=== PATIENT | female | born 1995 | race African-American/Black ===

== ENCOUNTER 2018-05-05 03:15 | Inpatient (IN) | payer OTHER ==
[~2018-05-05 03:15] MED LIST: DEXTROSE 5%-LACTATED RINGERS 1,000 ML IV SCH
[2018-05-05] MEDS: DEXTROSE 5%-NORMAL SALINE 1,000 ML IV ONE ×2 (03:30→19:53)
[2018-05-05 03:49] VITALS: BMI 27.6
[2018-05-05 04:00] LABS: BASO % 0.3 % (0-2.0); EOS % 2.5 % (0-4.5); HEMATOCRIT 37.4 % (32.4-45.2); HEMOGLOBIN 12.8 GM/dL (10.7-15.3); LYMPH % 11.4 % (8-40); MCH 31.2 pg (25.7-33.7); MCHC 34.3 g/dl (32.0-36.0); MEAN CELL VOLUME 90.8 fl (80-96); MEAN PLT VOLUME 9.4 fl (7.5-11.1); MONO % 9.7 % (3.8-10.2); NEUT % 76.1 % (42.8-82.8); PLATELET COUNT 185 K/MM3 (134-434); RBC 4.12 M/mm3 (3.60-5.2); RDW 13.3 % (11.6-15.6); WHITE BLOOD COUNT 14.7 K/mm3 (4.0-10.0)
[2018-05-05 04:13] LABS: INR 0.92 (0.83-1.09); PROTHROMBIN TIME (PATIENT) 10.9 SEC (9.7-13.0)
[2018-05-05 04:28] LABS: ANION GAP 8 MMOL/L (8-16); BLOOD UREA NITROGEN 8 mg/dL (7-18); CALCIUM 8.1 mg/dL (8.5-10.1); CHLORIDE 104 mmol/L (98-107); CO2 25 mmol/L (21-32); CREATININE 0.6 mg/dL (0.55-1.3); GLUCOSE,RANDOM 90 mg/dL (74-106); POTASSIUM 3.7 mmol/L (3.5-5.1); SODIUM 136 mmol/L (136-145)
[2018-05-05] MEDS ORDERED: PROMETHAZINE HCL 25 MG/1 ML VIAL ONE (04:29)
[2018-05-05] MEDS ORDERED: BUTORPHANOL TARTRATE 1 MG/ML VIAL ONE ×2 (04:29)
[2018-05-05] MEDS ORDERED: DEXTROSE 5%-LACTATED RINGERS 1,000 ML IV ONE (04:38)
[2018-05-05] MEDS ORDERED: PROMETHAZINE HCL 25 MG/1 ML VIAL IVPUSH ONE (04:45)
[2018-05-05] MEDS ORDERED: BUTORPHANOL TARTRATE 1 MG/ML VIAL IVPUSH ONE (04:45)
--- NOTE | 2018-05-05 07:57 | HP ---
Past Medical History - Admission Chief Complaint: Labor pain History of Present Illness: 23 yo , @ 40 weks gestation, EDC 05/04/18, admitted for labor pain. History Source: Patient Limitations to Obtaining History: No Limitations - Past Medical History ...: 1 ...Para: 0 ...Term: 0 ...: 0 ...Spon : 0 ...Induced : 0 ...Multiple Gestation: 0 ...LMP: 07/28/17 ... Weeks Gestation by Dates: 40.1 ...EDC by Dates: 05/04/18 ...EDC by Sono: 05/04/18 - Past Surgical History Past Surgical History: Yes: None Hx Myomectomy: No Hx Transabdominal Cerclage: No - Smoking History Smoking history: Never smoked Have you smoked in the past 12 months: No - Alcohol/Substance Use Hx Alcohol Use: No - Social History History of Recent Travel: No Home Medications - Allergies Allergies/Adverse Reactions: Allergies Allergy/AdvReac Type Severity Reaction Status Date / Time No Known Allergies Allergy Verified 05/05/18 03:53 - Home Medications Home Medications: Ambulatory Orders Prenat 115/Iron Fum/Folic/Dss [ 19 Tablet] 1 tab PO DAILY 04/29/18 Family Disease History - Family Disease History Family History: Unremarkable Review of Systems - Review of Systems Constitutional: reports: No Symptoms Eyes: reports: No Symptoms HENT: reports: No Symptoms Neck: reports: No Symptoms Cardiovascular: reports: No Symptoms Respiratory: reports: No Symptoms Gastrointestinal: reports: No Symptoms Genitourinary: reports: Pain Breasts: reports: No Symptoms Reported Musculoskeletal: reports: No Symptoms Integumentary: reports: No Symptoms Neurological: reports: No Symptoms Endocrine: reports: No Symptoms Hematology/Lymphatic: reports: No Symptoms Psychiatric: reports: No Symptoms Pain Intensity: 6 Physical Exam - Maternity Vital Signs: Vital Signs Temperature 97.4 F L 05/05/18 07:00 Pulse Rate 70 05/05/18 07:00 Respiratory Rate 20 05/05/18 07:00 Blood Pressure 126/79 05/05/18 07:00 O2 Sat by Pulse Oximetry (%) Constitutional: Yes: Well Nourished Eyes: Yes: Conjunctiva Clear HENT: Yes: Atraumatic Neck: Yes: Supple Cardiovascular: Yes: Regular Rate and Rhythm Lungs: Clear to auscultation - Abdominal Exam/OB Number of Fetuses: Single Presentation: Vertex Intensity: Mild/Mod - Vaginal Exam/OB Dilatation (cm): 4 Effacement (%): 90 Amniotic Membrane Status: Intact Station: -3 - Physical Exam Psychiatric: Yes: Alert, Oriented - Labs Lab Results: CBC, BMP 05/05/18 03:30 05/05/18 03:30 Problem List - Problems (1) Pain during labor Code(s): O99.89 - OTH DISEASES AND CONDITIONS COMPL PREG/CHLDBRTH; R52 - PAIN, UNSPECIFIED Assessment/Plan Active labor Admit to L&D Analgesia as needed Anticipate
--- NOTE | 2018-05-05 08:40 | PN ---
Progress Note, Labor Vaginal Exam #1 Labor Exam Date: 05/05/18 Heart Rate (range): Cat I Dilatation: 4 Effacement (%): 100 Presentation: Vertex/Position Station: -3 Remarks: AROM, clears No change since admission, irregular ctx Start pitocin Anticipate Fernanda Estevez MD
[2018-05-05] MEDS ORDERED: OXYTOCIN 30 UNITS in 0.9% NS 30 UNIT/500 ML INFUS.BAG IVPB SCH (08:45)
[2018-05-05] MEDS ORDERED: OXYTOCIN 30 UNITS in 0.9% NS 30 UNIT/500 ML INFUS.BAG IVPB ONE (08:56)
[2018-05-05] MEDS ORDERED: FENTANYL/BUPIVACAINE/NS/PF - PCEA - 50 ML DISP.SYRIN EP ONE ×2 (09:59→12:45)
[2018-05-05] MEDS ORDERED: ELECTROLYTE-148 SOLN 1,000 ML IV SCH (10:00)
[2018-05-05] MEDS ORDERED: TUBERCULIN PPD 5 TU/0.1ML SYRINGE (IN PATIENT USE ONLY) ID ONE (10:00)
[2018-05-05] MEDS ORDERED: NALOXONE HCL 0.4 MG/ML VIAL IVPUSH PRN (10:06)
[2018-05-05] MEDS ORDERED: LIDO 2%/EPI 1:200000 PRESRVFRE (20 ML SDVIAL) ONE (10:08)
[2018-05-05] MEDS ORDERED: FENTANYL/BUPIVACAINE/NS/PF - PCEA - 50 ML DISP.SYRIN EP SCH (10:15)
--- NOTE | 2018-05-05 13:07 | PN ---
Progress Note, Labor Vaginal Exam #2 Labor Exam Date: 05/05/18 Heart Rate (range): Cat I Dilatation: 10 Effacement (%): 100 Amniotic Membrane Status: Ruptured Presentation: Vertex/Position Station: +1 Remarks: Pt comfortable s/p epidural Cat I tracing Pitocin at 1cm Start pushing soon Anticipate Fernanda Estevez MD
[2018-05-05] MEDS ORDERED: OXYTOCIN 20 UNITS in 0.9% NS 20 UNIT/1,000 ML INFUS.BAG IV ONE (13:40)
[2018-05-05] MEDS ORDERED: BENZOCAINE 20% 57 GM BOTTLE TP PRN (14:36)
[2018-05-05] MEDS ORDERED: METHYLERGONOVINE MALEATE 0.2 MG/1 ML AMP IM PRN (14:36)
[2018-05-05] MEDS ORDERED: BISACODYL 10 MG SUPP.RECT RC PRN (14:36)
[2018-05-05] MEDS ORDERED: BENZOCAINE 28 GM HEMORRHOIDAL OINTMENT TP PRN (14:36)
[2018-05-05] MEDS ORDERED: WITCH HAZEL 50% (TUCKS) 40 PAD/JAR PAD TP PRN (14:36)
--- NOTE | 2018-05-05 14:36 | PN ---
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 Epidural anesthesia. Spontaneous delivery of anterior shoulder. placed on maternal abdomen. Cord clamped and cut after 2 minutes. Weight pending. Apgars 9/9. Spontaneous delivery of intact placenta with 3VC. Fundus firm. Perineum inspected, no lacerations. EBL 250ml. Mother and baby doing well. Ave Estevez MD
[2018-05-05] MEDS ORDERED: OXYTOCIN 20 UNITS in 0.9% NS 20 UNIT/1,000 ML INFUS.BAG IV SCH (14:45)
[2018-05-05] MEDS: ACETAMINOPHEN 325 MG TABLET (FP) PO PRN (22:47)
[2018-05-05] MEDS: IBUPROFEN 600 MG TABLET (FP) PO PRN (22:47)
--- NOTE | 2018-05-06 07:07 | PN ---
Post Progress Note Post Day: 1 Type of Delivery: Vital Signs: Vital Signs Temperature 98.3 F 05/06/18 06:00 Pulse Rate 66 05/06/18 06:00 Respiratory Rate 18 05/06/18 06:00 Blood Pressure 115/67 05/06/18 06:00 O2 Sat by Pulse Oximetry (%) 100 05/05/18 14:15 Breast Exam: Yes: Soft Uterus: Yes: Fundus Firm Abdomen/GI: Yes: Abdomen soft Lochia: Yes: Rubra Lochia, amount: Small Extremities: Yes: Calves non-tender Perineum: Yes: Intact Activity: Ambulating - Labs Labs: CBC WBC 14.7 K/mm3 (4.0-10.0) H 05/05/18 03:30 RBC 4.12 M/mm3 (3.60-5.2) 05/05/18 03:30 Hgb 12.8 GM/dL (10.7-15.3) 05/05/18 03:30 Hct 37.4 % (32.4-45.2) 05/05/18 03:30 MCV 90.8 fl (80-96) 05/05/18 03:30 MCH 31.2 pg (25.7-33.7) 05/05/18 03:30 MCHC 34.3 g/dl (32.0-36.0) 05/05/18 03:30 RDW 13.3 % (11.6-15.6) 05/05/18 03:30 Plt Count 185 K/MM3 (134-434) 05/05/18 03:30 MPV 9.4 fl (7.5-11.1) 05/05/18 03:30 Absolute Neuts (auto) 11.2 K/mm3 (1.5-8.0) H 05/05/18 03:30 Neutrophils % 76.1 % (42.8-82.8) 05/05/18 03:30 Lymphocytes % 11.4 % (8-40) 05/05/18 03:30 Monocytes % 9.7 % (3.8-10.2) 05/05/18 03:30 Eosinophils % 2.5 % (0-4.5) 05/05/18 03:30 Basophils % 0.3 % (0-2.0) 05/05/18 03:30 Nucleated RBC % 0 % (0-0) 05/05/18 03:30 Assessment/Plan day#1 doing well oob reg diet
[2018-05-06 08:26] LABS: BASO % 0.3 % (0-2.0); EOS % 1.3 % (0-4.5); HEMATOCRIT 33.3 % (32.4-45.2); HEMOGLOBIN 11.2 GM/dL (10.7-15.3); LYMPH % 13.4 % (8-40); MCH 30.7 pg (25.7-33.7); MCHC 33.6 g/dl (32.0-36.0); MEAN CELL VOLUME 91.2 fl (80-96); MEAN PLT VOLUME 9.6 fl (7.5-11.1); MONO % 8.4 % (3.8-10.2); NEUT % 76.6 % (42.8-82.8); PLATELET COUNT 151 K/MM3 (134-434); RBC 3.65 M/mm3 (3.60-5.2); RDW 13.4 % (11.6-15.6)
[2018-05-06] MEDS: PRENATAL VITAMINS W/ FOLIC ACID TABLET (FP) PO SCH (09:25)
[2018-05-06] MEDS: IBUPROFEN 600 MG TABLET (FP) PO PRN ×2 (09:25→20:48)
[2018-05-06] MEDS: ACETAMINOPHEN 325 MG TABLET (FP) PO PRN ×2 (09:26→20:48)
[2018-05-06] MEDS ORDERED: SENNOSIDES/DOCUSATE COMBO (SENNA PLUS) TABLET (UD) PO PRN (22:00)
[2018-05-07] MEDS: IBUPROFEN 600 MG TABLET (FP) PO PRN (07:59)
[2018-05-07] MEDS: ACETAMINOPHEN 325 MG TABLET (FP) PO PRN (08:00)
--- NOTE | 2018-05-07 08:06 | PN ---
Post Progress Note - Subjective Subjective: c/o cramps Post Day: 2 Type of Delivery: Vital Signs: Vital Signs Temperature 98.3 F 05/06/18 22:00 Pulse Rate 71 05/06/18 22:00 Respiratory Rate 18 05/06/18 22:00 Blood Pressure 125/73 05/06/18 22:00 O2 Sat by Pulse Oximetry (%) 100 05/05/18 14:15 Breast Exam: Yes: Soft, Other (will Bf at home , will use breast pump ). No: Engorged Uterus: Yes: Fundus Firm, Fundus below umbilicus Lochia: Yes: Rubra Lochia, amount: Moderate Extremities: Yes: Calves non-tender Perineum: Yes: Intact Activity: Ambulating - Labs Labs: CBC WBC 14.0 K/mm3 (4.0-10.0) H 05/06/18 07:15 RBC 3.65 M/mm3 (3.60-5.2) 05/06/18 07:15 Hgb 11.2 GM/dL (10.7-15.3) 05/06/18 07:15 Hct 33.3 % (32.4-45.2) 05/06/18 07:15 MCV 91.2 fl (80-96) 05/06/18 07:15 MCH 30.7 pg (25.7-33.7) 05/06/18 07:15 MCHC 33.6 g/dl (32.0-36.0) 05/06/18 07:15 RDW 13.4 % (11.6-15.6) 05/06/18 07:15 Plt Count 151 K/MM3 (134-434) 05/06/18 07:15 MPV 9.6 fl (7.5-11.1) 05/06/18 07:15 Absolute Neuts (auto) 10.7 K/mm3 (1.5-8.0) H 05/06/18 07:15 Neutrophils % 76.6 % (42.8-82.8) 05/06/18 07:15 Lymphocytes % 13.4 % (8-40) 05/06/18 07:15 Monocytes % 8.4 % (3.8-10.2) 05/06/18 07:15 Eosinophils % 1.3 % (0-4.5) 05/06/18 07:15 Basophils % 0.3 % (0-2.0) 05/06/18 07:15 Nucleated RBC % 0 % (0-0) 05/06/18 07:15 Problem List - Problems (1) Encounter for care and examination after delivery Code(s): Z39.2 - ENCOUNTER FOR ROUTINE FOLLOW-UP
[2018-05-07 08:40] VITALS: BP 124/74; PULSE 74; TEMP 98.2
[2018-05-07] MEDS: PRENATAL VITAMINS W/ FOLIC ACID TABLET (FP) PO SCH (09:54)
== END 2018-05-07 12:15 | disposition home or self-care (01) | DRG 560 ==
LOC: JLDR 03:15 → J3W 16:36
PROVIDERS: ADMIT Obstetrics & Gynecology; ATTEND Obstetrics & Gynecology
PROC: 10E0XZZ Delivery of Products of Conception, External Approach (ICD-10-PCS; principal; 2018-05-05)
DX: O48.0 Post-term pregnancy (principal); Z3A.40 40 weeks gestation of pregnancy; Z37.0 Single live birth
CPT/HCPCS: 36415; 59409; 80048; 85025; 85610; 85730; 86593; 86850; 86900; 86901; 87389